=== PATIENT | female | born 1975 | race Caucasian/White ===

== ENCOUNTER 2017-02-08 12:16 | Emergency (ER) | payer MEDICAID ==
[~2017-02-08] VITALS: Wt 63.3 kg
[~2017-02-08 12:16] MED LIST: CALC-600 PO
[2017-02-08] MEDS ORDERED: CIPR500T4 PO (15:47)
[2017-02-08] MEDS ORDERED: ALBU2.5V3 NEB (15:48)
[2017-02-08] MEDS ORDERED: HYDR-3011 PO (15:49)
--- NOTE | 2017-02-08 18:57 | ERD ---
ER Documentation Chief Complaint Date/Time DATE: 02/08/17 TIME: 18:56 Chief Complaint sob and mild dizziness sent by clinic for further evlauation . HPI Patient is a 41-year-old female with no medical problems who presents with dizziness. She said that this morning she felt dizzy. It started on Saturday. She was seen in the clinic and then was sent to the emergency department for further evaluation. The patient said that she was given "an injection" in the clinic and now she has no dizziness and feels much better. She does not know what the injection was. She denies pain. She is totally symptom-free at this time. Upon review of old medical records the patient one previous visit to the ER in 2010. ROS All systems reviewed and are negative except as per history of present illness. Medications Home Meds Reported Medications Hydroxyzine Hcl* (Hydroxyzine Hcl*) 25 Mg Tablet, 25 MG PO QHS Y for ITCHING, # 30 TAB TAKE 1 OR 2 TABLETS NEEDED 02/08/17 Albuterol Sulfate* (Albuterol Sulfate* Neb) 0.083%-3 Ml Neb, 1.25 MG NEB BID Y for WHEEZING AND SOB, #30 VIAL 02/08/17 Ciprofloxacin Hcl* (Ciprofloxacin Hcl*) 500 Mg Tablet, 500 MG PO BID, #14 TAB 02/08/17 Discontinued Reported Medications Calcium (Calcium) 500 Mg Tablet, 500 MG PO 06/07/11 Allergies Allergies: Coded Allergies: No Known Allergy (Verified , 02/08/17) PMhx/Soc History of Surgery: Yes ( x 3 ) Anesthesia Reaction: No Hx Respiratory Disorders: No Hx Cardiac Disorders: No Hx Psychiatric Problems: No Hx Miscellaneous Medical Probl: No Hx Alcohol Use: No Hx Substance Use: No Hx Tobacco Use: No Smoking Status: Never smoker FmHx Family History: No diabetes Physical Exam Vitals Vital Signs Date Time Temp Pulse Resp B/P Pulse Ox O2 Delivery O2 Flow Rate FiO2 02/08/17 12:18 98.4 89 20 136/76 98 Physical Exam Const: No acute distress Head: Atraumatic Eyes: Normal Conjunctiva ENT: Normal External Ears, Nose and Mouth. Neck: Full range of motion..~ No meningismus. Resp: Clear to auscultation bilaterally Cardio: Regular rate and rhythm, no murmurs Abd: Soft, non tender, non distended. Normal bowel sounds Skin: No petechiae or rashes Back: No midline or flank tenderness Ext: No cyanosis, or edema Neur: Awake and alert, no slurred speech, cranial nerves II through XII are intact, strength is 5 out of 5 in all 4 extremities, gait is normal Psych: Normal Mood and Affect Results 24 hrs Laboratory Tests Test 02/08/17 15:35 Bedside Glucose 146mg/dL [facility] EKG read by me: Rate/Rhythm: Regular rate and rhythm at a normal rate Intervals: Normal Impression: No evidence of ischemia or arrhythmia Accu-Chek is normal. test negative. Patient is a 41-year-old female with no medical problems who presents with dizziness. She is symptom-free here in the emergency department. She had a normal EKG, Accu-Chek, and negative test. This point I believe outpatient management is appropriate. The patient will need to follow-up closely with a primary doctor within 24-48 hours for reevaluation. I do not believe she has stroke or intracranial hemorrhage. I think the risks of doing a CT scan of the brain with benefits at this time. The patient can return for any worsening symptoms. Departure Diagnosis: Primary Impression: Dizziness Condition: Fair Patient Instructions: Dizziness, Unk Cause Referrals: Your doctor Additional Instructions: Llame al doctor ADRIANNA y ana paula kaylynn JAKE PARA DENTRO DE 1-2 DAN.Dgale a la secretaria que nosotros le instruimos hacer esta jake.Avise o llame si olivas condicin se empeora antes de la jake. Regresa aqui si peor o no mejor. EDITA MARC MD February 08, 2017 18:57
== END 2017-02-08 17:29 | disposition home or self-care (01) ==
LOC: E/R 12:16
DX: R42 Dizziness and giddiness (principal)
CPT/HCPCS: 82962; 93005